=== PATIENT | male | born 1960 | race Caucasian/White ===

== ENCOUNTER 2024-11-04 22:01 | Observation (INO) ==
[2024-11-04] MEDS: METHYLPREDNISOLONE SOD SUCC/PF 125 MG/2 ML VIAL IVP ONE (22:40)
[2024-11-04] MEDS ORDERED: METHYLPREDNISOLONE SOD SUCC/PF 125 MG/2 ML VIAL ONE (22:40)
[2024-11-04 22:51] LABS: Eosinophils%(Percent) Auto 0.4 % (0.0-4.0); White Blood Count 13.3 K/uL (3.7-9.6)
[2024-11-04 22:52] LABS: Granulocytes % - Auto 94.3 % (49.1-73.1); Granulocytes#(Absolute)- Auto 12.6 (2.0-6.2); Hematocrit 46.8 % (41.3-50.1); Mean Corpuscular Volume 93.1 fl (81.9-96.5); Monocytes #(Absolute)- Auto 0.2 (0.2-0.8); Monocytes %(Percent)- Auto 1.2 % (4.5-10.7); Platelet Count 182 K/uL (142-355)
[2024-11-04 23:03] LABS: Potassium 5.7 mmol/L (3.6-5.2)
[2024-11-04] MEDS: IPRATROPIUM/ALBUTEROL SULFATE 3 ML AMPUL.NEB INH ONE (23:07)
[2024-11-04] MEDS: BUDESONIDE 0.5 MG/2 ML AMPUL.NEB INH ONE (23:08)
[2024-11-04 23:37] LABS: Oxygen Saturation ABG 96 % (92-100); PCO2 ABG 35 mmHg (35-45); PO2 ABG 75 mmHg (60-100); pH ABG 7.47 (7.35-7.45)
[2024-11-04] MEDS ORDERED: CEFTRIAXONE SODIUM 1 GM VIAL ONE (23:48)
[2024-11-04] MEDS ORDERED: 0.9 % SODIUM CHLORIDE MB+ 50 ML IV ONE (23:48)
[2024-11-04] MEDS: CEFTRIAXONE SODIUM 1 GM in 0.9 % SODIUM CHLORIDE MB+ 50 ML IV ONE (23:50)
[2024-11-04] MEDS: BUMETANIDE 1 MG/4 ML VIAL IVP ONE (23:51)
[2024-11-05] MEDS ORDERED: BUMETANIDE 1 MG/4 ML VIAL ONE (01:26)
[2024-11-05] MEDS: BUMETANIDE 1 MG/4 ML VIAL IVP ONE (01:30)
--- NOTE | 2024-11-05 02:34 | Emergency Department Note ---
HPI - SOB/Dyspnea General Chief Complaint: SOB -Shortness of Breath Stated Complaint: LOW STATS/LOW OXYGEN STAT LEVELS Source: patient, EMR, EMS and other Source comment: [facility] [place] Mode of arrival: ambulance Limitations: altered mental status and physical limitation History of Present Illness HPI Narrative: A 64-year-old male came into the ER [facility] secondary to inability to get his of his bed out of the room and down the [place]. States that patient was being turned today yelled out in pain with his left hip as he is in the right hip so x-ray was performed since then he has developed increasing shortness of breath difficulty breathing tonight his pulse ox dropped to 80% even with face mask alcohol he came up to 89 to 91%. assisted staff denies any fever, chills, nausea and vomiting, no bowel habit changes and the pain in his right hip without complaints since this afternoon. Related Data Home Medications Medication Instructions Recorded Confirmed acetaminophen 325 mg tablet 650 mg PO Q6H PRN fever or pain 01/30/24 11/05/24 buspirone 10 mg tablet 10 mg PO DAILY 01/30/2410/18 calcium 600 mg (as 1 tab PO BID 01/30/24 carbonate)-vitamin D3 10 mcg (400 unit) tablet (Calcium with Vitamin D) camphor-menthol 0.2 %-3.5 % 1 applic topical BID PRN m uscle 01/30/24 11/05/24 topical gel pain digoxin 250 mcg (0.25 mg) tablet 0.25 mg PO DAILY 01/1711/05/24 duloxetine 60 mg capsule,delayed 60 mg PO DAILY 11/05/24 release finasteride 5 mg tablet 5 mg PO DAILY 01/30/2411/05 furosemide 20 mg tablet 20 mg PO DAILY PRN SWELLING 01/30/24 11/05/24 hydrocodone 10 mg-acetaminophen 1 tab PO Q6H PRN pain 01/30/24 11/05/24 325 mg tablet insulin aspart U-100 100 unit/mL 1 sliding scale dose subcut ACHS 01/30/24 11/05/24 subcutaneous solution (Novolog PRN hyperglycemia U-100 Insulin aspart) pantoprazole 40 mg tablet,delayed 40 mg PO BID 4 11/05/24 release potassium chloride 20 mEq 20 meq PO BID 01/30/2411/05 tablet,extended release(part/cryst) pregabalin 100 mg capsule 100 mg PO BID 01/30/2411/05 ropinirole 4 mg tablet 4 mg PO BEDTIME 01/30/24 spironolactone 25 mg tablet 25 mg PO BID 01/30/2410/18 calcium carbonate (Tums) 200 mg PO TID PRN dyspepsia 11/05/24 11/05/24 cetirizine 10 mg tablet 10 mg PO DAILY 11/05/2410/18 ferrous sulfate 325 mg (65 mg 325 mg PO BID 11/05/24 0 11/05/24 iron) tablet ipratropium 0.5 mg-albuterol 3 mg 3 ml inhalation Q8H PRN shortness 11/05/24 11/05/24 (2.5 mg base)/3 mL nebulization of breath or wheezing soln sodium chloride 0.65 % nasal spray 1 spray intranasal Q1H PRN dry 11/05/24 11/05/24 aerosol ([place] Saline) nasal passages Previous Rx's Medication Instructions Recorded bumetanide 0.5 mg tablet 0.5 mg PO BID fluid overload and 01/30/24 scrotal swelling #60 tabs Allergies Allergy/AdvReac Type Severity Reaction Status Date / Time codeine Allergy Verified 11/04/24 22:32 Review of Systems Status of ROS 10 or more systems reviewed and unremark able except as noted in history and below Constitutional Reports: fatigue and malaise; Denies: fever, chills, change in weight, night sweats or change in sleep pattern Eyes Denies: change in vision, blurry vision, blind spots, light sensitivity, eye discomfort, eye discharge or dry eyes Ears, nose, mouth, and throat Denies: throat pain, neck pain, throat swelling, difficulty swallowing, hoarseness, mouth pain, swelling of lips/tongue, ear pain or ear discharge Cardiovascular Reports: edema (BLE), swelling of feet/ankles (BLE), shortness of breath with exertion and shortness of breath when lying down; Denies: chest pain, palpitations, lightheadedness or leg pain with exertion Respiratory Reports: shortness of breath and wheezing; Denies: cough, stridor, pain on inspiration or change in phlegm color Gastrointestinal Reports: constipation; Denies: abdominal pain, nausea, vomiting, coffee grounds in vomit, heartburn, diarrhea, bloating, belching or difficulty swallowing Genitourinary Denies: painful urination, urinary frequency, urinary urgency, blood in urine or genital pain Musculoskeletal Reports: back pain, extremity swelling (BLE), joint pain, limited range of motion and muscle weakness; Denies: neck pain or extremity pain Integumentary/Breast Reports: rash (axilla and groin folds), stretch knott and nail changes; Denies: itching, redness, skin pain or skin tenderness Neurological Reports: headache and weakness in extremities; Denies: numbness in extremities, lack of coordination or dizziness Psychiatric Reports: anxiety and irritability; Denies: mood swings, panic attacks, change in sleep pattern, hopelessness, visual hallucinations, auditory hallucinations, tactile hallucinations, suicidal ideation or homicidal ideation Endocrine Reports: fatigue; Denies: excessive urination, excessive thirst, cold intolerance or excessive sweating Hematologic/Lymphatic Denies: easy bruising, easy bleeding or enlarged lymph nodes Allergic/Immunologic Denies: hives, throat swelling, tongue swelling, facial swelling, wheezing or itchy eyes PFSH PFSH Medical History Hypoxia Urethral meatal stenosis Anxiety disorder, unspecified Arthropathy, unspecified Heart failure, unspecified Old myocardial infarction Chronic pain syndrome Insomnia, unspecified Generalized anxiety disorder Hyperlipidemia, unspecified Morbid (severe) obesity due to excess calories Chronic or unspecified gastric ulcer with hemorrhage Iron deficiency anemia secondary to blood loss (chronic) Type 2 diabetes mellitus without complications Chronic ischemic heart disease, unspecified BPH (benign prostatic hyperplasia) Depression Polyneuropathy Atrial fibrillation Hypertension after donor nephrectomy requiring medication Anxiety Hypoalbuminemia Anemia GERD (gastroesophageal reflux disease) Chronic respiratory failure due to obstructive sleep apnea Chronic venous insufficiency of lower extremity Scrotal swelling Metabolic disorder Acute exacerbation of CHF (congestive heart failure) Debility Fluid overload Social History Smoking status: unknown if ever smoked What is your current living situation: I presently have a place to live Problems where you live: no known problems Highest level of school completed/degree received: decline to answer Feel stressed/tense/nervous/anxious/difficulty sleeping: very much Life stressor details: hospice Exam Exam: Patient was in fowlers position upon entering room for exam. Constitutional: abnormal general appearance (disheveled) and (chronically ill), no apparent distress, abnormal body habitus (obese), limitations noted (physical limitations) and alert Vital Signs - 24 hr 11/04/24 22:25 11/04/24 23:08 11/04/24 23:30 Temperature 97.8 F 97.8 F Pulse Rate 80 75 Respiratory Rate 17 17 Blood Pressure 90/53 98/48 Pulse Oximetry 93 L 98 94 L Oxygen Delivery Me thod Nasal Cannula Nasal Cannula Oxygen Flow Rate 4 4 11/04/24 23:51 11/05/24 00:30 11/05/24 01:30 Temperature Pulse Rate 75 Respiratory Rate 17 Blood Pressure 108/50 108/75 112/50 Pulse Oximetry 95 Oxygen Delivery Me thod Nasal Cannula Oxygen Flow Rate 4 11/05/24 01:32 11/05/24 02:26 Temperature 97.0 F L Pulse Rate 81 89 Respiratory Rate 17 18 Blood Pressure 112/50 101/48 Pulse Oximetry 94 L 92 L Oxygen Delivery Me thod Nasal Cannula Nasal Cannula Oxygen Flow Rate 4 4 Vital Signs - 24 hr 11/04/24 22:25 11/04/24 23:08 11/04/24 23:30 Temperature 97.8 F 97.8 F Pulse Rate 80 75 Pulse Rate [Left] Respiratory Rate 17 17 Blood Pressure 90/53 98/48 Blood Pressure [Le ft Arm] Pulse Oximetry 93 L 98 94 L Oxygen Delivery Me thod Nasal Cannula Nasal Cannula Oxygen Flow Rate 4 4 11/04/24 23:51 11/05/24 00:30 11/05/24 01:30 Temperature Pulse Rate 75 Pulse Rate [Left] Respiratory Rate 17 Blood Pressure 108/50 108/75 112/50 Blood Pressure [Le ft Arm] Pulse Oximetry 95 Oxygen Delivery Me thod Nasal Cannula Oxygen Flow Rate 4 11/05/24 01:32 11/05/24 02:26 11/05/24 03:26 Temperature 97.0 F L 98.0 F Pulse Rate 81 89 90 Pulse Rate [Left] Respiratory Rate 17 18 18 Blood Pressure 112/50 101/48 106/47 Blood Pressure [Le ft Arm] Pulse Oximetry 94 L 92 L 97 Oxygen Delivery Me thod Nasal Cannula Nasal Cannula Nasal Cannula Oxygen Flow Rate 4 4 4 11/05/24 03:35 11/05/24 03:39 11/05/24 04:49 Temperature 98.0 F Pulse Rate 90 Pulse Rate [Left] Respiratory Rate 20 20 Blood Pressure 106/47 Blood Pressure [Le ft Arm] Pulse Oximetry 95 95 90 L Oxygen Delivery Me thod Nasal Cannula Oxygen Flow Rate 4 11/05/24 08:00 11/05/24 12:00 Temperature 97.9 F 97.7 F Pulse Rate Pulse Rate [Left] 110 H 60 Respiratory Rate 22 21 Blood Pressure Blood Pressure [Le ft Arm] 90/56 92/45 Pulse Oximetry 90 L 90 L Oxygen Delivery Me thod Nasal Cannula Nasal Cannula Oxygen Flow Rate 5 5 HENMT: normocephalic, head/scalp atraumatic, hearing grossly abnormal, external ears normal, TMs abnormal, nasal mucous membranes normal, external nose normal, oral mucous membranes abnormal, oropharynx normal and dentition abnormal Eyes: PERRL, EOMs intact bilaterally, conjunctivae normal, scleral icterus noted, papilledema noted and periorbital findings normal Neck/C-Spine: visual inspection normal and trachea midline Lymph: no lymphadenopathy noted and no lymphedema noted Chest: inspection of chest normal and palpation of chest normal Respiratory: breath sounds unequal, normal respiratory effort, auscultation abnormal, wheezing noted, rales noted, no retractions and no use of accessory muscles Cardiovascular: normal heart rate noted, regular rhythm noted, no gallop, no rub, murmur noted, no JVD, no clicks and peripheral pulses 2+ throughout Gastrointestinal: abdomen abnormal to inspection, abdomen soft to palpation, nontender to palpation, nontender to percussion, nondistended, normoactive bowel sounds, hepatosplenomegaly noted, no masses, no pulsatile mass, no ascites and hernia noted Genitourinary: no CVA tenderness, bladder normal to palpation and inguinal lymphadenopathy noted bilateral testicle swelling with redness and abrasion to testicle, bilateral groin with redness Back/Pelvis: spine abnormal to inspection, thoracic spine tenderness noted, lumbar spine tenderness noted, thoracic spine ROM abnormal, lumbar spine ROM abnormal, paraspinal muscle tenderness noted and straight leg raise abnormal Extremities: abnormal to inspection (BLE swelling with redness, ble with small fluid filled blisters), normal to palpation, no tenderness, full ROM, no joint enlargement and no deformity inner thighs with skin peeling and redness. Strong 2 plus bilateral pedal and radial pulses. 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 II-XII intact, no movement abnormality noted, no focal motor deficit noted, sensory deficit noted, gait abnormality noted, speech abnormality noted, coordination abnormality noted, no pronator drift noted, no fasciculations noted and GCS normal Psychiatry: Mental Status Exam documented within this Exam's Psych section mental status grossly normal, oriented x3, thought process abnormality noted, cooperative, affect abnormality noted (anxious), psychomotor abnormality noted (slow) and (disorganized) and memory normal Feel stressed/tense/nervous/anxious/difficulty sleeping: very much Life stressor details: hospice Skin: skin color abnormal Reports (pale) and (cyanosis), rash noted (axilla, groin and breast folds erythema and scaling), lesion(s) noted (pick lesions on chest and abdomen), ecchymosis noted, wound(s) noted, no lacerations, skin turgor abnormal, jaundice noted, no petechiae, no mottling, nails abnormality noted and alopecia noted Course Reevaluation(s) Reevaluation #1: Patient tolerated the DuoNeb and Pulmicort along with the Lasix 40 mg IV still having rapid breathing but not as distressed was able to carry on conversation with 2-3 words sats still requiring 4 L of oxygen to maintain above 90%. Patient knows where he is 89 years knows me although he is unable to rationalize it is not a rats nest in the saline and he continues to pick at the close sheets in his chest acute, going to work on those, thanks while he is in the ER. Vital Signs Vital signs: Vital Signs Temperature 97.8 F 11/04/24 22:25 Pulse Rate 80 11/04/24 22:25 Respiratory Rate 17 11/04/24 22:25 Blood Pressure 90/53 11/04/24 22:25 Pulse Oximetry 93 L 11/04/24 22:25 Oxygen Delivery Method Nasal Cannula 11/04/24 22:25 Oxygen Flow Rate 4 11/04/24 22:25 Temperature 97.7 F 11/05/24 12:00 Pulse Rate 60 11/05/24 12:00 Respiratory Rate 21 11/05/24 12:00 Blood Pressure 92/45 11/05/24 12:00 Pulse Oximetry 90 L 11/05/24 12:00 Oxygen Delivery Method Nasal Cannula 11/05/24 12:00 Oxygen Flow Rate 5 11/05/24 12:00 MDM - SOB/Dyspnea MDM Narrative Medical decision making narrative: Patient presented to the ER with acute low blood pressure difficulty breathing chronic swelling. Exacerbation of COPD, asthma, pulmonary embolism, community- acquired pneumonia, congestive heart failure acute on chronic, sleep apnea, dehydration, hypokalemia, debility. Nursing staff and [facility] was [facility] patient he screamed out in pain holding his right hip so x-ray was performed just to assure there is no acute injury Differential Diagnosis Differential diagnosis: Likely acute exacerbation of chronic obstructive airways disease, congestive heart failure, community acquired pneumonia, asthma with exacerbation, pulmonary embolism and other (Sleep apnea, dehydration, hyperkalemia, hypoalbuminemia, ) Medical Records Attestation: I reviewed the patient's medical records. Lab Data Attestation: I reviewed the patient's lab results. Labs: Lab Results 11/04/24 11/04/24 11/04/24 Range/Units 00:00 22:20 22:52 WBC 13.3 H (3.7-9.6) K/uL RBC 5.0 (4.40-5.80) M/uL Hgb 15.8 (14.0-17.4) gm/dL Hct 46.8 (41.3-50.1) % MCV 93.1 (81.9-96.5) fl MCH 31.4 (27.6-33.7) pg MCHC 33.7 (33.0-35.7) g/dl RDW 17.9 H (11.0-14.8) % Plt Count 182 (142-355) K/uL MPV 10.2 (6.0-10.4) fl Gran % 94.3 H (49.1-73.1) % Lymph % (Auto) 4.1 L (17.6-39.05) % [place] % (Auto) 1.2 L (4.5-10.7) % Eos % (Auto) 0.4 (0.0-4.0) % Baso % (Auto) 0.0 (0.0-1.3) Lymph # (Auto) 0.5 L (0.8-2.9) [place] # (Auto) 0.2 (0.2-0.8) Eos # (Auto) 0.0 (0.0-0.3) Baso # (Auto) 0.0 (0.0-0.1) Absolute Gran (auto) 12.6 H (2.0-6.2) ABG pH 7.47 H (7.35-7.45) ABG pCO2 35 (35-45) mmHg ABG pO2 75 (60-100) mmHg ABG PO2/FiO2 Ratio ABG HCO3 (22-26) mmo1/L ABG Total CO2 mmo1/L ABG O2 Saturation (92-100) % ABG Base Excess (-2-2) mmo1/L A-a O2 Gradient mmHg Respiratory Index (0-1) FiO2 % Sodium 136 (136-145) mmol/L Potassium 5.1 5.7 H (3.6-5.2) mmol/L Chloride 100.0 (98-107) mmol/L Carbon Dioxide 23 (21-32) mmol/L Anion Gap 13.0 (4-14) mEq/L BUN 54 H (7-18) mg/dL Creatinine 1.2 (0.6-1.3) mg/dL Estimated GFR 68.4 (>59.9) Glucose 64 L (70-110) mg/dL Lactic Acid 3.2 H (0.27-1.43) mmol/L Calcium 8.1 L (8.5-10.1) mg/dL Total Bilirubin 3.40 H (0.0-1.0) mg/dL AST 46 H (15-37) U/L ALT 24 L (30-65) U/L Alkaline Phosphatase 111 (50-136) U/L Troponin I High Sens (4.0-60.4) ng/L B-Natriuretic Peptide 1240.0 H (0-100) pg/mL Total Protein 5.9 L (6.4-8.2) g/dL Albumin 1.9 L (3.4-5.0) g/dL Lipase (16.0-77.0) U/L 11/04/24 11/05/24 Range/Units 22:52 00:00 WBC (3.7-9.6) K/uL RBC (4.40-5.80) M/uL Hgb (14.0-17.4) gm/dL Hct (41.3-50.1) % MCV (81.9-96.5) fl MCH (27.6-33.7) pg MCHC (33.0-35.7) g/dl RDW (11.0-14.8) % Plt Count (142-355) K/uL MPV (6.0-10.4) fl Gran % (49.1-73.1) % Lymph % (Auto) (17.6-39.05) % [place] % (Auto) (4.5-10.7) % Eos % (Auto) (0.0-4.0) % Baso % (Auto) (0.0-1.3) Lymph # (Auto) (0.8-2.9) [place] # (Auto) (0.2-0.8) Eos # (Auto) (0.0-0.3) Baso # (Auto) (0.0-0.1) Absolute Gran (auto) (2.0-6.2) ABG pH (7.35-7.45) ABG pCO2 (35-45) mmHg ABG pO2 241 (60-100) mmHg ABG PO2/FiO2 Ratio 0.31 ABG HCO3 25.5 (22-26) mmo1/L ABG Total CO2 26.6 mmo1/L ABG O2 Saturation 96 (92-100) % ABG Base Excess 2.0 (-2-2) mmo1/L A-a O2 Gradient 166 mmHg Respiratory Index 2.2 H (0-1) FiO2 40 % Sodium (136-145) mmol/L Potassium (3.6-5.2) mmol/L Chloride (98-107) mmol/L Carbon Dioxide (21-32) mmol/L Anion Gap (4-14) mEq/L BUN (7-18) mg/dL Creatinine (0.6-1.3) mg/dL Estimated GFR (>59.9) Glucose (70-110) mg/dL Lactic Acid (0.27-1.43) mmol/L Calcium (8.5-10.1) mg/dL Total Bilirubin (0.0-1.0) mg/dL AST (15-37) U/L ALT (30-65) U/L Alkaline Phosphatase (50-136) U/L Troponin I High Sens 52.30 (4.0-60.4) ng/L B-Natriuretic Peptide (0-100) pg/mL Total Protein (6.4-8.2) g/dL Albumin (3.4-5.0) g/dL Lipase 6.0 L (16.0-77.0) U/L ABG Data Attestation: I have reviewed the pertinent ABG results. Imaging Data Imaging ordered: Chest x-ray and other (right hip xray) Attestation: I have reviewed the pertinent imaging results. Radiologist's impression: EXAM: XR HIP RT MIN 2V HISTORY: LEFT HIP PAIN ; Unavailable COMPARISON: [facility] abdominopelvic CT December 09, 2022 FINDINGS: Right hip reveals marked non uniform joint space narrowing, subchondral cystic and osteophyte formation. IMPRESSION: Severe hip osteoarthritis. CHEST HISTORY: hypoxishypoxis; COMPARISON: October 17, 2024. TECHNIQUE: Frontal view of the chest was submitted for interpretation. FINDINGS: The cardiomediastinal silhouette is again seen to be enlarged. Lungs show diffuse airspace disease bilaterally, not significantly changed since October 17, 2024. IMPRESSION: Cardiomegaly again noted. Diffuse airspace disease is not significantly changed since October 17, 2024 and likely represents an element of pulmonary edema ECG Data Attestation: I have reviewed the pertinent ECG results. Prior ECG tracings: available for review Interpretation: EKG-atrial fibrillation, ventricular premature complex, rate 82, RR 732, [place] Discharge Plan Discharge Patient Disposition: Admitted As Observation Condition: Improved Clinical Impression: Acute exacerbation of CHF (congestive heart failure), Debility, Hypertension, Chronic venous insufficiency of lower extremity, Acute hyperkalemia, Acute hypotension, Hypoalbuminemia Interventions: ED Discharge Assessment Last Done: 11/05/24 03:39 ED Discharge Vital Sign Last Done: 11/05/24 03:39 Emergency Department Charge Sheet Last Done: 11/05/24 03:40 Time of Disposition: 02:34 Discharge Date/Time: 11/05/24 03:30
[2024-11-05] MEDS ORDERED: MAGNESIUM, ALUMINUM HYDROXIDE 30 ML ORAL.SUSP PO PRN (02:54)
[2024-11-05] MEDS ORDERED: DOCUSATE SODIUM 100 MG CAPSULE PO PRN (02:54)
[2024-11-05] MEDS ORDERED: ONDANSETRON HCL/PF 4 MG/2 ML VIAL INJ PRN (02:54)
[2024-11-05] MEDS ORDERED: ACETAMINOPHEN 500 MG TABLET PO PRN (02:54)
[2024-11-05] MEDS: IPRATROPIUM/ALBUTEROL SULFATE 3 ML AMPUL.NEB INH SCH (03:35)
[2024-11-05] MEDS: BUDESONIDE 0.5 MG/2 ML AMPUL.NEB INH ONE (03:35)
[2024-11-05] MEDS: 0.9 % SODIUM CHLORIDE 1000 ML 1,000 ML IV SCH (08:00)
[2024-11-05] MEDS: CALCIUM GLUCONATE 1,000 MG in 0.9 % SODIUM CHLORIDE 100ML 100 ML IV ONE (08:00)
[2024-11-05] MEDS: ALBUMIN HUMAN 25% 100 ML IV SCH (08:01)
[2024-11-05] MEDS: PANTOPRAZOLE SODIUM 40 MG TABLET.DR PO SCH (09:26)
[2024-11-05 10:26] LABS: Basophils%(Percent) Auto 0.1 (0.0-1.3); Eosinophils%(Percent) Auto 0.2 % (0.0-4.0); Granulocytes % - Auto 94.9 % (49.1-73.1); Granulocytes#(Absolute)- Auto 11.7 (2.0-6.2); Hematocrit 47.2 % (41.3-50.1); Mean Corpuscular Volume 92.7 fl (81.9-96.5); Monocytes #(Absolute)- Auto 0.3 (0.2-0.8); Monocytes %(Percent)- Auto 2.1 % (4.5-10.7); Platelet Count 175 K/uL (142-355); White Blood Count 12.3 K/uL (3.7-9.6)
[2024-11-05 11:41] LABS: RBC Morphology Normal (Normal); Total Cells Counted 100
--- NOTE | 2024-11-05 13:41 | Short Stay Summary ---
H&P: HPI History of Present Illness Chief complaint: LOW STATS/LOW OXYGEN STAT LEVELS Narrative: A 64-year-old male came into the ER via EMS from the [place] secondary to inability to get his of his bed out of the room and down the [place]. States that patient was being turned today yelled out in pain with his left hip as he is in the right hip so x-ray was performed since then he has developed increasing shortness of breath difficulty breathing tonight his pulse ox dropped to 80% even with face mask alcohol he came up to 89 to 91%. intermediate staff denies any fever, chills, nausea and vomiting, no bowel habit changes and the pain in his right hip without complaints since this afternoon. After discussion with nursing nurses again today advised patient was on [facility] for several years revoked last week after the right hip was shown to have osteoarthritis for physical therapy regimen to help strengthen patient and decrease his pain. Review of Systems Status of ROS 10 or more systems reviewed and unremark able except as noted in history and below Constitutional Reports: fatigue and malaise; Denies: fever, chills, change in weight, night sweats or change in sleep pattern Eyes Denies: change in vision, blurry vision, blind spots, light sensitivity, eye discomfort, eye discharge or dry eyes Ears, nose, mouth, and throat Denies: throat pain, neck pain, throat swelling, difficulty swallowing, hoarseness, mouth pain, swelling of lips/tongue, ear pain or ear discharge Cardiovascular Reports: edema (BLE), swelling of feet/ankles (BLE), shortness of breath with exertion and shortness of breath when lying down; Denies: chest pain, palpitations, lightheadedness or leg pain with exertion Respiratory Reports: shortness of breath and wheezing; Denies: cough, stridor, pain on inspiration or change in phlegm color Gastrointestinal Reports: constipation; Denies: abdominal pain, nausea, vomiting, coffee grounds in vomit, heartburn, diarrhea, bloating, belching or difficulty swallowing Genitourinary Denies: painful urination, urinary frequency, urinary urgency, blood in urine or genital pain Musculoskeletal Reports: back pain, extremity swelling (BLE), joint pain, dowling ited range of motion and muscle weakness; Denies: neck pain or extremity pain Integumentary/Breast Reports: rash (axilla and groin folds), stretch knott and nail changes; Denies: itching, redness, skin pain or skin tenderness Neurological Reports: headache and weakness in extremities; Denies: numbness in extremities, lack of coordination or dizziness Psychiatric Reports: anxiety and irritability; Denies: mood swings, panic attacks, change in sleep pattern, hopelessness, visual hallucinations, auditory hallucinations, tactile hallucinations, suicidal ideation or homicidal ideation Endocrine Reports: fatigue; Denies: excessive urination, excessive thirst, cold intolerance or excessive sweating Hematologic/Lymphatic Denies: easy bruising, easy bleeding or enlarged lymph nodes Allergic/Immunologic Denies: hives, throat swelling, tongue swelling, facial swelling, wheezing or itchy eyes PFSH PFS Medical History Hypoxia Urethral meatal stenosis Anxiety disorder, unspecified Arthropathy, unspecified Heart failure, unspecified Old myocardial infarction Chronic pain syndrome Insomnia, unspecified Generalized anxiety disorder Hyperlipidemia, unspecified Morbid (severe) obesity due to excess calories Chronic or unspecified gastric ulcer with hemorrhage Iron deficiency anemia secondary to blood loss (chronic) Type 2 diabetes mellitus without complications Chronic ischemic heart disease, unspecified BPH (benign prostatic hyperplasia) Depression Polyneuropathy Atrial fibrillation Hypertension after donor nephrectomy requiring medication Anxiety Hypoalbuminemia Anemia GERD (gastroesophageal reflux disease) Chronic respiratory failure due to obstructive sleep apnea Chronic venous insufficiency of lower extremity Scrotal swelling Metabolic disorder Acute exacerbation of CHF (congestive heart failure) Debility Fluid overload Social History Smoking status: unknown if ever smoked What is your current living situation: I presently have a place to live Problems where you live: no known problems Highest level of school completed/degree received: decline to answer Feel stressed/tense/nervous/anxious/difficulty sleeping: very much Life stressor details: hospice Meds Home Medications and Allergies Home Medications Medication Instructions Recorded Confirmed Type acetaminophen 325 mg tablet 650 mg PO Q6H PRN fever or pain 01/30/24 11/05/24 History bumetanide 0.5 mg tablet 0.5 mg PO BID fluid overload and 01/30/24 11/05/24 Rx scrotal swelling #60 tabs buspirone 10 mg tablet 10 mg PO DAILY 01/30/2410/18 History calcium 600 mg (as 1 tab PO BID 01/30/24 History carbonate)-vitamin D3 10 mcg (400 unit) tablet (Calcium with Vitamin D) camphor-menthol 0.2 %-3.5 % 1 applic topical BID PRN m uscle 01/30/24 11/05/24 History topical gel pain digoxin 250 mcg (0.25 mg) tablet 0.25 mg PO DAILY 01/1711/05/24 History duloxetine 60 mg capsule,delayed 60 mg PO DAILY 11/05/24 History release finasteride 5 mg tablet 5 mg PO DAILY 01/30/2411/05 History furosemide 20 mg tablet 20 mg PO DAILY PRN SWELLING 01/30/24 11/05/24 History hydrocodone 10 mg-acetaminophen 1 tab PO Q6H PRN pain 01/30/24 11/05/24 History 325 mg tablet insulin aspart U-100 100 unit/mL 1 sliding scale dose subcut ACHS 01/30/24 11/05/24 History subcutaneous solution (Novolog PRN hyperglycemia U-100 Insulin aspart) pantoprazole 40 mg tablet,delayed 40 mg PO BID 4 11/05/24 History release potassium chloride 20 mEq 20 meq PO BID 01/30/2411/05 History tablet,extended release(part/cryst) pregabalin 100 mg capsule 100 mg PO BID 01/30/2411/05 History ropinirole 4 mg tablet 4 mg PO BEDTIME 01/30/24 History spironolactone 25 mg tablet 25 mg PO BID 01/30/2410/18 History calcium carbonate (Tums) 200 mg PO TID PRN dyspepsia 11/05/24 11/05/24 History cetirizine 10 mg tablet 10 mg PO DAILY 11/05/2410/18 History ferrous sulfate 325 mg (65 mg 325 mg PO BID 11/05/24 0 11/05/24 History iron) tablet ipratropium 0.5 mg-albuterol 3 mg 3 ml inhalation Q8H PRN shortness 11/05/24 11/05/24 History (2.5 mg base)/3 mL nebulization of breath or wheezing soln sodium chloride 0.65 % nasal spray 1 spray intranasal Q1H PRN dry 11/05/24 11/05/24 History aerosol (Wild Horse Saline) nasal passages Allergies Allergy/AdvReac Type Severity Reaction Status Date / Time codeine Allergy Verified 11/04/24 22:32 Exam Exam: Patient was in fowlers position upon entering room for exam. Constitutional: abnormal general appearance (disheveled) and (chronically ill), no apparent distress, abnormal body habitus (obese), limitations noted (physical limitations) and alert Vital Signs - 24 hr 11/04/24 22:25 11/04/24 23:08 11/04/24 23:30 Temperature 97.8 F 97.8 F Pulse Rate 80 75 Pulse Rate [Left] Respiratory Rate 17 17 Blood Pressure 90/53 98/48 Blood Pressure [Le ft Arm] Pulse Oximetry 93 L 98 94 L Oxygen Delivery Me thod Nasal Cannula Nasal Cannula Oxygen Flow Rate 4 4 11/04/24 23:51 11/05/24 00:30 11/05/24 01:30 Temperature Pulse Rate 75 Pulse Rate [Left] Respiratory Rate 17 Blood Pressure 108/50 108/75 112/50 Blood Pressure [Le ft Arm] Pulse Oximetry 95 Oxygen Delivery Me thod Nasal Cannula Oxygen Flow Rate 4 11/05/24 01:32 11/05/24 02:26 11/05/24 03:26 Temperature 97.0 F L 98.0 F Pulse Rate 81 89 90 Pulse Rate [Left] Respiratory Rate 17 18 18 Blood Pressure 112/50 101/48 106/47 Blood Pressure [Le ft Arm] Pulse Oximetry 94 L 92 L 97 Oxygen Delivery Me thod Nasal Cannula Nasal Cannula Nasal Cannula Oxygen Flow Rate 4 4 4 11/05/24 03:35 11/05/24 03:39 11/05/24 04:49 Temperature 98.0 F Pulse Rate 90 Pulse Rate [Left] Respiratory Rate 20 20 Blood Pressure 106/47 Blood Pressure [Le ft Arm] Pulse Oximetry 95 95 90 L Oxygen Delivery Me thod Nasal Cannula Oxygen Flow Rate 4 11/05/24 08:00 11/05/24 12:00 Temperature 97.9 F 97.7 F Pulse Rate Pulse Rate [Left] 110 H 60 Respiratory Rate 22 21 Blood Pressure Blood Pressure [Le ft Arm] 90/56 92/45 Pulse Oximetry 90 L 90 L Oxygen Delivery Me thod Nasal Cannula Nasal Cannula Oxygen Flow Rate 5 5 HENMT: normocephalic, head/scalp atraumatic, hearing grossly abnormal, external ears normal, TMs abnormal, nasal mucous membranes normal, external nose normal, oral mucous membranes abnormal, oropharynx normal and dentition abnormal Eyes: PERRL, EOMs intact bilaterally, conjunctivae normal, scleral icterus noted, papilledema noted and periorbital findings normal Neck/C-Spine: visual inspection normal and trachea midline Lymph: no lymphadenopathy noted and no lymphedema noted Chest: inspection of chest normal and palpation of chest normal Respiratory: breath sounds unequal, normal respiratory effort, auscultation abnormal, wheezing noted, rales noted, no retractions and no use of accessory muscles Cardiovascular: normal heart rate noted, regular rhythm noted, no gallop, no rub, murmur noted, no JVD, no clicks and peripheral pulses 2+ throughout Gastrointestinal: abdomen abnormal to inspection, abdomen soft to palpation, nontender to palpation, nontender to percussion, nondistended, normoactive bowel sounds, hepatosplenomegaly noted, no masses, no pulsatile mass, no ascites and hernia noted Genitourinary: no CVA tenderness, bladder normal to palpation and inguinal lymphadenopathy noted bilateral testicle swelling with redness and abrasion to testicle, bilateral groin with redness Back/Pelvis: spine abnormal to inspection, thoracic spine tenderness noted, lumbar spine tenderness noted, thoracic spine ROM abnormal, lumbar spine ROM abnormal, paraspinal muscle tenderness noted and straight leg raise abnormal Extremities: abnormal to inspection (BLE swelling with redness, ble with small fluid filled blisters), normal to palpation, no tenderness, full ROM, no joint enlargement and no deformity inner thighs with skin peeling and redness. Strong 2 plus bilateral pedal and radial pulses. Neurology: transport rn II-XII intact, no movement abnormality noted, no focal motor deficit noted, sensory deficit noted, gait abnormality noted, speech abnormality noted, coordination abnormality noted, no pronator drift noted, no fasciculations noted and GCS normal Psychiatry: Mental Status Exam documented within this Exam's Psych section mental status grossly normal, oriented x3, thought process abnormality noted, cooperative, affect abnormality noted (anxious), psychomotor abnormality noted (slow) and (disorganized) and memory normal Feel stressed/tense/nervous/anxious/difficulty sleeping: very much Life stressor details: hospice Skin: skin color abnormal Reports (pale) and (cyanosis), rash noted (axilla, groin and breast folds erythema and scaling), lesion(s) noted (pick lesions on chest and abdomen), ecchymosis noted, wound(s) noted, no lacerations, skin turgor abnormal, jaundice noted, no petechiae, no mottling, nails abnormality noted and alopecia noted Assessment and Plan Assessment and Plan (1) Pneumonia: Qualifiers: Laterality: bilateral Lung location: unspecified part of lung Pneumonia type: due to unspecified organism Qualified Code(s): J18.9 - Pneumonia, unspecified organism Code(s): J18.9 - Pneumonia, unspecified organism (2) Hyperkalemia: Code(s): E87.5 - Hyperkalemia (3) Hypoalbuminemia: Code(s): E88.09 - Other disorders of plasma-protein metabolism, not elsewhere classified (4) Hypotension due to medication: Code(s): I95.2 - Hypotension due to drugs (5) End of life care: Code(s): Z51.5 - Encounter for palliative care (6) Fluid overload: Qualifiers: Hypervolemia type: other Qualified Code(s): E87.79 - Other fluid overload Code(s): E87.70 - Fluid overload, unspecified (7) Acute exacerbation of CHF (congestive heart failure): Qualifiers: Heart failure type: combined systolic and diastolic Qualified Code(s): I50.43 - Acute on chronic combined systolic (congestive) and diastolic (congestive) heart failure Code(s): I50.9 - Heart failure, unspecified (8) Hypertension: Qualifiers: Hypertension type: primary hypertension Qualified Code(s): I10 - Essential (primary) hypertension Code(s): I10 - Essential (primary) hypertension (9) Debility: Code(s): R53.81 - Other malaise (10) Urethral meatal stenosis: Qualifiers: Urethral stricture sex-location: male urethra-meatus Urethral stricture type: post-traumatic, male Qualified Code(s): 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, male, meatal Code(s): N35.919 - Unspecified urethral stricture, male, unspecified site (11) GERD (gastroesophageal reflux disease): Qualifiers: Esophagitis presence: without esophagitis Qualified Code(s): K21.9 - Gastro-esophageal reflux disease without esophagitis Code(s): K21.9 - Gastro-esophageal reflux disease without esophagitis (12) Type 2 diabetes mellitus without complications: Qualifiers: Diabetes mellitus longterm insulin use: with director talent use Qualified Code(s): E11.9 - Type 2 diabetes mellitus without complications; Z79.4 - MCFP (current) use of insulin Code(s): E11.9 - Type 2 diabetes mellitus without complications (13) Hypoxia: Code(s): R09.02 - Hypoxemia (14) Tinea corporis: Code(s): B35.4 - Tinea corporis Plan 0.9% normal saline at 100 mL/h Continue try to get urine from patient End-of-life issues discussed with patient he desires not to continue to be treated and go back to the assisted so patient was discharged back. Has not had his Xanax today he is very anxious in the ER sister talked to him and advised him to come back to the hospital so he was readmitted or actually discharge was canceled so that treatment could continue Rocephin 1 g IV every 12 hours Zithromax 500 mg every day Lasix IV Daily weights Cardiac monitoring Solu-Medrol 40 mg IV every 12 hours DuoNebs every 4 hours Pulmicort every 12 hours Diflucan 200 mg IV today then 100 mg every day IV Nystatin with triamcinolone applied affected area of the axilla breast and groin 3 times daily Results Labs Labs: CBC 11/04/24 11/05/24 Range/Units 22:20 09:08 WBC 13.3 H 12.3 H (3.7-9.6) K/uL RBC 5.0 5.1 (4.40-5.80) M/uL Hgb 15.8 15.5 (14.0-17.4) gm/dL Hct 46.8 47.2 (41.3-50.1) % Plt Count 182 175 (142-355) K/uL Gran % 94.3 H 94.9 H (49.1-73.1) % Lymph % (Auto) 4.1 L 2.7 L (17.6-39.05) % [place] % (Auto) 1.2 L 2.1 L (4.5-10.7) % Eos % (Auto) 0.4 0.2 (0.0-4.0) % Baso % (Auto) 0.0 0.1 (0.0-1.3) Lymph # (Auto) 0.5 L 0.3 L (0.8-2.9) [place] # (Auto) 0.2 0.3 (0.2-0.8) Eos # (Auto) 0.0 0.0 (0.0-0.3) Baso # (Auto) 0.0 0.0 (0.0-0.1) Absolute Gran (auto) 12.6 H 11.7 H (2.0-6.2) CMP 11/04/24 11/04/24 11/05/24 00:00 22:20 05:45 Sodium 136 142 Potassium 5.1 5.7 H 4.0 Chloride 100.0 106.0 Carbon Dioxide 23 30 BUN 54 H 22 H Creatinine 1.2 0.8 Glucose 64 L 97 Calcium 8.1 L 8.4 L Liver Function 11/04/24 11/05/24 Range/Units 22:20 05:45 Total Bilirubin 3.40 H 0.10 (0.0-1.0) mg/dL AST 46 H 15 (15-37) U/L ALT 24 L 30 (30-65) U/L Alkaline Phosphatase 111 39 L (50-136) U/L Albumin 1.9 L 2.5 L (3.4-5.0) g/dL ABG ABG results: 11/04/24 22:52 ABG pH 7.47 H ABG pCO2 35 ABG pO2 241 ABG HCO3 25.5 ABG Total CO2 26.6 ABG O2 Saturation 96 ABG Base Excess 2.0 Attestation: I have reviewed the pertinent ABG results. Pulse Oximetry Attestation: I have reviewed the pertinent pulse oximetry results. ECG Attestation: I have reviewed the pertinent ECG results. Prior ECG tracings: available for review Interpretation: in the ER Imaging Imaging ordered: Chest x-ray Radiologist's impression: CHEST HISTORY: hypoxishypoxis; COMPARISON: October 17, 2024. TECHNIQUE: Frontal view of the chest was submitted for interpretation. FINDINGS: The cardiomediastinal silhouette is again seen to be enlarged. Lungs show diffuse airspace disease bilaterally, not significantly changed since October 17, 2024. IMPRESSION: Cardiomegaly again noted. Diffuse airspace disease is not significantly changed since October 17, 2024 and likely represents an element of pulmonary edema DS: Providers Provider Date of admission: 11/05/24 02:54 Primary care physician: Ish Stewart MD Admitting clinician: Darcy Samuels Attending physician on admission: Darcy Samuels Attending physician on discharge: Darcy Samuels Discharging clinician: Darcy Samuels DS: Summary Status at Discharge Overall status at discharge: patient is progressing back to baseline Time Spent with Patient Time attestation: Total time spent providing and/or coordinating discharge services: Discharge Plan Discharge Disposition: [facility] Condition: Improved Anticipated Discharge Date/Time: 11/05/24 13:41 Discharge Medications: Continued hydrocodone-acetaminophen 10-325 mg tablet 1 tab PO Q6H PRN (Reason: pain) ropinirole 4 mg tablet 4 mg PO BEDTIME spironolactone 25 mg tablet 25 mg PO BID Rx Instructions: HOLD IF SYSTOLIC BLOOD PRESSURE LESS THAN 110 buspirone 10 mg tablet 10 mg PO DAILY digoxin 250 mcg (0.25 mg) tablet 0.25 mg PO DAILY duloxetine 60 mg capsule,delayed release(DR/EC) 60 mg PO DAILY finasteride 5 mg tablet 5 mg PO DAILY furosemide 20 mg tablet 20 mg PO DAILY PRN (Reason: SWELLING) insulin aspart U-100 [Novolog U-100 Insulin aspart] 100 unit/mL solution 1 sliding scale dose subcut ACHS PRN (Reason: hyperglycemia) pantoprazole 40 mg tablet,delayed release (DR/EC) 40 mg PO BID potassium chloride 20 mEq tablet,ER particles/crystals 20 meq PO BID pregabalin 100 mg capsule 100 mg PO BID camphor-menthol 0.2-3.5 % gel 1 applic topical BID PRN (Reason: muscle pain) Rx Instructions: rub in gently and completely calcium carbonate-vitamin D3 [Calcium with Vitamin D] 600 mg-10 mcg (400 unit) tablet 1 tab PO BID acetaminophen 325 mg tablet 650 mg PO Q6H PRN (Reason: fever or pain) bumetanide 0.5 mg tablet 0.5 mg PO BID Qty: 60 0RF cetirizine 10 mg tablet 10 mg PO DAILY ferrous sulfate 325 mg (65 mg iron) tablet 325 mg PO BID ipratropium-albuterol 0.5 mg-3 mg(2.5 mg base)/3 mL solution for nebulization 3 ml INHALATION Q8H PRN (Reason: shortness of breath or wheezing) Patient Comments: INHALE ONE VIAL VIA NEBULIZER THREE TIMES DAILY NEEDED calcium carbonate [Tums] 200 mg calcium (500 mg) tablet,chewable 200 mg PO TID PRN (Reason: dyspepsia) Wild Horse Saline 0.65 % aerosol,spray 1 spray intranasal Q1H PRN (Reason: dry nasal passages) Activity: as per physical therapy and increase activity as tolerated Diet: advance to your usual diet Interventions: Discharge Assessment Last Done: 11/05/24 14:01 MED/SURG & ICU Observation Charge Sheet Last Done: 11/05/24 14:01 Plan of Treatment: Patient was admitted to the hospital for the altered mental status and pneumonia and acute aspiration CHF. Upon discussion with the patient finds able to go back to the assisted today with return to comfort care hospice declines further treatment of his pneumonia inside the hospital at this time. Patient to be discussed with Ish to see if he wants antibiotics and further aerosolized treatments as well as continuing any diuretics or diuretic changes. Print Language: Hungarian Patient Instructions: Hospice Care (GEN) Forms: Portal/Health Info Access Inst Follow-Ups: Ish Stewart MD [Primary Care Provider, Medical]
[2024-11-05] MEDS ORDERED: ACETAMINOPHEN 325 MG TABLET PO PRN (18:32)
[2024-11-05] MEDS ORDERED: HYDROCODONE/APAP 10/325 MG 1 EACH TABLET PO PRN (18:32)
[2024-11-05] MEDS: ALPRAZolam 0.5 MG TABLET PO PRN (19:59)
[2024-11-05] MEDS: FLUCONAZOLE-NACL 200 MG/100 ML 200 MG/100 ML PIGGYBACK IV ONE (20:00)
[2024-11-05] MEDS: SPIRONOLACTONE 50 MG TABLET PO SCH (20:06)
[2024-11-05] MEDS: BUMETANIDE 1 MG TABLET PO SCH (20:07)
[2024-11-05] MEDS: FERROUS SULFATE 325 MG TABLET PO SCH (20:07)
[2024-11-05] MEDS: PREGABALIN 100 MG CAPSULE PO SCH (20:07)
[2024-11-06 06:54] LABS: Basophils%(Percent) Auto 0.2 (0.0-1.3); Eosinophils#(Absolute)Auto 0.1 (0.0-0.3); Eosinophils%(Percent) Auto 0.8 % (0.0-4.0); Granulocytes % - Auto 89.1 % (49.1-73.1); Mean Corpuscular Volume 93.7 fl (81.9-96.5); Monocytes #(Absolute)- Auto 0.6 (0.2-0.8); Monocytes %(Percent)- Auto 3.9 % (4.5-10.7); Platelet Count 167 K/uL (142-355); White Blood Count 15.7 K/uL (3.7-9.6)
[2024-11-06 07:37] LABS: Potassium 5.7 mmol/L (3.6-5.2)
[2024-11-06] MEDS ORDERED: DIGOXIN 125 MCG TABLET PO SCH (09:00)
[2024-11-06] MEDS: FINASTERIDE 5 MG TABLET PO SCH (09:35)
[2024-11-06] MEDS: CETIRIZINE HCL 10 MG TABLET PO SCH (09:35)
[2024-11-06] MEDS: BUSPIRONE HCL 5 MG TABLET PO SCH (09:36)
[2024-11-06] MEDS: DULOXETINE HCL 30 MG CAPSULE.DR PO SCH (09:37)
[2024-11-06 14:21] LABS: Base Excess ABG 0.2 mmo1/L (-2-2); Oxygen Saturation ABG 87 % (92-100); PCO2 ABG 32 mmHg (35-45); PO2 ABG 49 mmHg (60-100); pH ABG 7.47 (7.35-7.45)
[2024-11-06] MEDS: AZITHROMYCIN 500 MG 500 MG in 0.9 % SODIUM CHLORIDE 250 ML IV SCH (15:06)
[2024-11-06] MEDS: SODIUM POLYSTYRENE SULFONATE 15 GM/60 ML ORAL.SUSP PO SCH (15:07)
[2024-11-06] MEDS ORDERED: ACETAMINOPHEN 1000 MG/100 ML 750 MG/75 ML IV.SOLN IV PRN (16:08)
--- NOTE | 2024-11-06 16:11 | Progress Note ---
Progress Note: Subjective Subjective Interval history: Patient has been arrested and is alert and oriented. States today that he understands and has declined intubation and chest compressions if anything untoward happens to him at this time. Took his sister convincing him not to [facility] and stay in the hospital for treatment despite his desires prior to that to go back to the [facility]. So patient was discharged and brought back over secondary to change in desires for end-of-life care. Patient remained afebrile blood pressure was low but stable with tachycardia improved. oxygen at 4 liters controlling hypoxia with medications Exam Exam: Patient was in in bed during exam Constitutional: abnormal general appearance (disheveled) and (chronically ill), no apparent distress, abnormal body habitus (obese), limitations noted (physical limitations) and alert Vital Signs - 24 hr 11/05/24 20:00 11/05/24 21:11 11/05/24 21:51 Temperature 98.8 F Pulse Rate [Left] 85 Respiratory Rate 24 Blood Pressure Blood Pressure [Le ft Arm] 162/145 91/55 87/35 Pulse Oximetry 93 L Oxygen Delivery Me thod Nasal Cannula Oxygen Flow Rate Fraction of Inspir ed Oxygen 11/06/24 00:00 11/06/24 01:07 11/06/24 03:55 Temperature 98.3 F Pulse Rate [Left] 79 Respiratory Rate 20 Blood Pressure Blood Pressure [Le ft Arm] 83/37 Pulse Oximetry 90 L 90 L 90 L Oxygen Delivery Me thod Nasal Cannula Nasal Cannula Oxygen Flow Rate 2 Fraction of Inspir ed Oxygen 11/06/24 03:55 11/06/24 04:00 11/06/24 07:17 Temperature 98.3 F Pulse Rate [Left] 74 Respiratory Rate 22 Blood Pressure Blood Pressure [Le ft Arm] 88/44 Pulse Oximetry 90 L 92 L 92 L Oxygen Delivery Me thod Nasal Cannula Nasal Cannula Oxygen Flow Rate 2 Fraction of Inspir ed Oxygen 11/06/24 08:00 11/06/24 09:36 11/06/24 11:17 Temperature 97.9 F Pulse Rate [Left] 86 Respiratory Rate 23 Blood Pressure 100/48 Blood Pressure [Le ft Arm] 100/48 Pulse Oximetry 89 L 94 L Oxygen Delivery Me thod Nasal Cannula Oxygen Flow Rate 2 Fraction of Inspir ed Oxygen 11/06/24 12:00 11/06/24 15:10 Temperature 97.4 F L Pulse Rate [Left] 87 Respiratory Rate 24 Blood Pressure Blood Pressure [Le ft Arm] 128/56 Pulse Oximetry 82 L 94 L Oxygen Delivery Me thod Nasal Cannula Oxygen Flow Rate 2 Fraction of Inspir ed Oxygen HENMT: normocephalic, head/scalp atraumatic, hearing grossly abnormal, external ears normal, TMs abnormal, nasal mucous membranes normal, external nose normal, oral mucous membranes abnormal, oropharynx normal and dentition abnormal Eyes: PERRL, EOMs intact bilaterally, conjunctivae normal, scleral icterus noted, papilledema noted and periorbital findings normal Neck/C-Spine: visual inspection normal and trachea midline Lymph: no lymphadenopathy noted and no lymphedema noted Chest: inspection of chest normal and palpation of chest normal Respiratory: breath sounds unequal, normal respiratory effort, auscultation abnormal, wheezing noted, rales noted, no retractions and no use of accessory muscles Cardiovascular: normal heart rate noted, regular rhythm noted, no gallop, no rub, murmur noted, no JVD, no clicks and peripheral pulses 2+ throughout Gastrointestinal: abdomen abnormal to inspection, abdomen soft to palpation, nontender to palpation, nontender to percussion, nondistended, normoactive bowel sounds, hepatosplenomegaly noted, no masses, no pulsatile mass, no ascites and hernia noted Genitourinary: no CVA tenderness, bladder normal to palpation, scrotum abnormal (swelling) and inguinal lymphadenopathy noted bilateral testicle swelling with redness and abrasion to testicle, bilateral groin with redness Back/Pelvis: spine abnormal to inspection, thoracic spine tenderness noted, lumbar spine tenderness noted, thoracic spine ROM abnormal, lumbar spine ROM abnormal, paraspinal muscle tenderness noted and straight leg raise abnormal Extremities: abnormal to inspection (BLE swelling with redness, ble with small fluid filled blisters), normal to palpation, no tenderness, full ROM, no joint enlargement and no deformity inner thighs with skin peeling and redness. Strong 2 plus bilateral pedal and radial pulses. Neurology: clinical informatics specialist II-XII intact, no movement abnormality noted, no focal motor deficit noted, sensory deficit noted, gait abnormality noted, speech abnormality noted, coordination abnormality noted, no pronator drift noted, no fasciculations noted and GCS normal Psychiatry: Mental Status Exam documented within this Exam's Psych section mental status grossly normal, oriented x3, thought process abnormality noted, cooperative, affect abnormality noted (anxious), psychomotor abnormality noted (slow) and (disorganized) and memory normal Feel stressed/tense/nervous/anxious/difficulty sleeping: very much Life stressor details: hospice Skin: skin color abnormal Reports (pale) and (cyanosis), rash noted (axilla, groin and breast folds erythema and scaling), lesion(s) noted (pick lesions on chest and abdomen), ecchymosis noted, wound(s) noted, no lacerations, skin turgor abnormal, jaundice noted, no petechiae, no mottling, nails abnormality noted and alopecia noted Progress Note: Objective Labs Labs: CBC 11/06/24 Range/Units 05:55 WBC 15.7 H (3.7-9.6) K/uL RBC 4.8 (4.40-5.80) M/uL Hgb 15.0 (14.0-17.4) gm/dL Hct 45.0 (41.3-50.1) % Plt Count 167 (142-355) K/uL Gran % 89.1 H (49.1-73.1) % Lymph % (Auto) 6.0 L (17.6-39.05) % [place] % (Auto) 3.9 L (4.5-10.7) % Eos % (Auto) 0.8 (0.0-4.0) % Baso % (Auto) 0.2 (0.0-1.3) Lymph # (Auto) 0.9 (0.8-2.9) [place] # (Auto) 0.6 (0.2-0.8) Eos # (Auto) 0.1 (0.0-0.3) Baso # (Auto) 0.0 (0.0-0.1) Absolute Gran (auto) 14.0 H (2.0-6.2) CMP 11/06/24 05:55 Sodium 135 L Potassium 5.7 H Chloride 101.0 Carbon Dioxide 25 BUN 77 H Creatinine 2.1 H Glucose 86 Calcium 8.8 Liver Function 11/06/24 Range/Units 05:55 Total Bilirubin 3.37 H (0.0-1.0) mg/dL AST 42 H (15-37) U/L ALT 23 L (30-65) U/L Alkaline Phosphatase 90 (50-136) U/L Albumin 1.8 L (3.4-5.0) g/dL Progress Note: A&P Assessment and Plan (1) Pneumonia: Qualifiers: Laterality: bilateral Lung location: unspecified part of lung Pneumonia type: due to unspecified organism Qualified Code(s): J18.9 - Pneumonia, unspecified organism (2) Hyperkalemia: (3) Hypoalbuminemia: (4) Hypotension due to medication: (5) End of life care: (6) Fluid overload: Qualifiers: Hypervolemia type: other Qualified Code(s): E87.79 - Other fluid overload (7) Acute exacerbation of CHF (congestive heart failure): Qualifiers: Heart failure type: combined systolic and diastolic Qualified Code(s): I50.43 - Acute on chronic combined systolic (congestive) and diastolic (congestive) heart failure (8) Hypertension: Qualifiers: Hypertension type: primary hypertension Qualified Code(s): I10 - Essential (primary) hypertension (9) Debility: (10) Urethral meatal stenosis: Qualifiers: Urethral stricture sex-location: male urethra-meatus Urethral stricture type: post-traumatic, male Qualified Code(s): 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, male, meatal (11) GERD (gastroesophageal reflux disease): Qualifiers: Esophagitis presence: without esophagitis Qualified Code(s): K21.9 - Gastro-esophageal reflux disease without esophagitis (12) Type 2 diabetes mellitus without complications: Qualifiers: Diabetes mellitus intermodal customer service insulin use: with residential use Qualified Code(s): E11.9 - Type 2 diabetes mellitus without complications; Z79.4 - 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 Has not had his Xanax today he is very anxious in the ER sister talked to him and advised him to come back to the hospital so he was readmitted or actually discharge was canceled so that treatment could continue Rocephin 1 g IV every 12 hours Zithromax 500 mg every day Lasix IV Daily weights Cardiac monitoring Solu-Medrol 40 mg IV every 12 hours DuoNebs every 4 hours Pulmicort every 12 hours Diflucan 200 mg IV today then 100 mg every day IV Nystatin with triamcinolone applied affected area of the axilla breast and groin 3 times daily Fall Risk Details Valenzuela Fall Scale Risk Level: High Fall Risk Current Medications: Current Medications Acetaminophen (Acetaminophen 500 Mg Tablet) 1,000 mg PO Q6H PRN PRN Reason: MILD PAIN SCALE 1-4/fever Hydrocodone Bitart/Acetaminophen (Hydrocodone/Apap 10/325 Mg 1 Each Tablet) 1 each PO Q6H PRN PRN Reason: Moderate Pain SCALE 5-7 Albuterol Sulfate (Ipratropium/Albuterol Sulfate 3 Ml Ampul.Neb) 3 ml INH Q4H [facility] Last Admin: 11/06/24 15:10 Dose: 3 ml Alprazolam (Alprazolam 0.5 Mg Tablet) 0.5 mg PO Q12H PRN PRN Reason: Agitation Last Admin: 11/05/24 20:06 Dose: 0.5 mg Bumetanide (Bumetanide 1 Mg Tablet) 0.5 mg PO BID [facility] Last Admin: 11/06/24 09:36 Dose: 0.5 mg Buspirone HCl (Buspirone Hcl 5 Mg Tablet) 10 mg PO DAILY [facility] Last Admin: 11/06/24 09:36 Dose: 10 mg Cetirizine HCl (Cetirizine Hcl 10 Mg Tablet) 10 mg PO DAILY [facility] Last Admin: 11/06/24 09:35 Dose: 10 mg Docusate Sodium (Docusate Sodium 100 Mg Capsule) 100 mg PO DAILY PRN PRN Reason: Constipation Duloxetine HCl (Duloxetine Hcl 30 Mg Capsule.Dr) 60 mg PO DAILY [facility] Last Admin: 11/06/24 09:37 Dose: 60 mg Ferrous Sulfate (Ferrous Sulfate 325 Mg Tablet) 325 mg PO BID [facility] Last Admin: 11/06/24 09:37 Dose: 325 mg Finasteride (Finasteride 5 Mg Tablet) 5 mg PO DAILY [facility] Last Admin: 11/06/24 09:35 Dose: 5 mg Sodium Chloride (Sodium Chloride) 1,000 mls @ 100 mls/hr IV CONT [facility] Last Admin: 11/06/24 11:46 Dose: Not Given Fluconazole (Fluconazole-Nacl 200 Mg/100 Ml) 200 mg in 100 mls @ 100 mls/hr IV Q24H [facility] Azithromycin 500 mg/ Sodium (Chloride) 250 mls @ 250 mls/hr IV DAILY [facility] Last Admin: 11/06/24 15:06 Dose: 250 mls/hr Vancomycin HCl 1,000 mg/Vancomycin HCl 500 mg/ Sodium Chloride 500 mls @ 250 mls/hr IV 1600 [facility] Acetaminophen (Acetaminophen 1000 Mg/100 Ml) 750 mg in 75 mls @ 300 mls/hr IV Q6H PRN PRN Reason: Fever OF 100.5 OR GREATER Insulin Human Regular (Insulin Regular, Human 100 Unit/Ml) 0 unit SUBQ ACHS PRN; Protocol PRN Reason: hyperglycemia Magnesium Hydroxide (Magnesium, Aluminum Hydroxide 30 Ml Oral.Susp) 30 ml PO DAILY PRN PRN Reason: Constipation Nystatin/Triamcinolone Acetonide (Nystatin/Triamcinolone Acet 15 Gm Cream..G.) 1 gm TOPICAL Q8H [facility] Last Admin: 11/06/24 15:06 Dose: 1 gm Ondansetron HCl (Ondansetron Hcl/Pf 4 Mg/2 Ml Vial) 4 mg INJ Q6H PRN PRN Reason: Nausea And Vomiting Pantoprazole Sodium (Pantoprazole Sodium 40 Mg Tablet.Dr) 40 mg PO DAILY [facility] Last Admin: 11/06/24 09:35 Dose: 40 mg Pregabalin (Pregabalin 100 Mg Capsule) 100 mg PO BID [facility] Last Admin: 11/06/24 09:37 Dose: 100 mg Sodium Polystyrene Sulfonate (Sodium Polystyrene Sulfonate 15 Gm/60 Ml Oral.Susp) 30 gm PO Q6H [facility] Stop: 11/08/24 09:00 Last Admin: 11/06/24 15:07 Dose: 30 gm Time Spent With Patient Time: Total time spent is greater than 50% in coordination of care (as documented) at patient's floor/unit and/or counseling patient: Time with patient: greater than 35 minutes
[2024-11-06 16:23] LABS: Basophils%(Percent) Auto 0.2 (0.0-1.3); Eosinophils%(Percent) Auto 0.2 % (0.0-4.0); Granulocytes % - Auto 90.1 % (49.1-73.1); Granulocytes#(Absolute)- Auto 12.5 (2.0-6.2); Hematocrit 44.1 % (41.3-50.1); Mean Corpuscular Volume 91.8 fl (81.9-96.5); Monocytes #(Absolute)- Auto 0.6 (0.2-0.8); Monocytes %(Percent)- Auto 4.4 % (4.5-10.7); Platelet Count 153 K/uL (142-355); White Blood Count 13.9 K/uL (3.7-9.6)
[2024-11-06 16:40] LABS: Potassium 5.2 mmol/L (3.6-5.2)
[2024-11-06] MEDS: ACETAMINOPHEN 1000 MG/100 ML 1,000 MG/100 ML IV.SOLN IV ONE (16:43)
[2024-11-06] MEDS: 0.9 % SODIUM CHLORIDE 500 ML IV ONE (16:44)
[2024-11-06] MEDS: VANCOMYCIN HCL 1,000 MG in 0.9 % SODIUM CHLORIDE 250 ML IV SCH (16:58)
[2024-11-06 17:00] LABS: Base Excess ABG 1.8 mmo1/L (-2-2); Oxygen Saturation ABG 97 % (92-100); PCO2 ABG 37 mmHg (35-45); PO2 ABG 92 mmHg (60-100); pH ABG 7.45 (7.35-7.45)
[2024-11-06 17:33] VITALS: TEMP 97.8
--- NOTE | 2024-11-06 17:48 | Emergency Department Note ---
HPI - SOB/Dyspnea General Chief Complaint: SOB -Shortness of Breath Stated Complaint: LOW STATS/LOW OXYGEN STAT LEVELS Source: patient, EMR, EMS and other Source comment: [facility] staff c [facility] Mode of arrival: ambulance Limitations: altered mental status and physical limitation History of Present Illness HPI Narrative: This is a 64-year-old white male who was admitted to our hospital here at [facility], who has clinically worsened today. Patient was admitted for shortness of breath, as well as suspected UTI, with some delirium. He was treated with antibiotics, diuresis. He is acutely worsened today. His white blood cell count increased from 12-15.7. His BUN increased to 87, and his troponin, initially negative on admission, increased to 119 today. Patient was noted to be hypoxic in the afternoon, and had to be placed on high flow for ventilatory support. He improved dramatically, and was given an IV fluid bolus as well. Vancomycin was ordered, and given. However, the hospitalist, Dr. Samuels, believes that he may now exceed our ability to care for him here, depending on patient and family preference. Family is requesting that we continue to do everything that we can for him, though he is a DNR/DNI. At this juncture, I do believe the transferring him for critical care at a larger facility would be the most prudent hospice care is not preferred by family. MD elicited complaint: Reports shortness of breath and cough Pertinent past history: Reports congestive heart failure; Denies pneumonia Onset (ago): day(s) (1) Context: Reports recent illness; Denies recent travel or smoke/fume exposure Timing: Reports progressively worsening Severity: moderate-severe Exacerbating factors: Reports lying flat and deep breaths Relieving factors: Reports oxygen Known history of: Reports congestive heart failure Associated symptoms: Reports cough; Denies chest pain or fever Treatment prior to arrival: Reports none Related Data Home oxygen amount: other (See prior records) Home Medications Medication Instructions Recorded Confirmed acetaminophen 325 mg tablet 650 mg PO Q6H PRN fever or pain 01/30/24 11/05/24 buspirone 10 mg tablet 10 mg PO DAILY 01/30/2410/18 0/25 calcium 600 mg (as 1 tab PO BID 01/30/24 carbonate)-vitamin D3 10 mcg (400 unit) tablet (Calcium with Vitamin D) camphor-menthol 0.2 %-3.5 % 1 applic topical BID PRN m uscle 01/30/24 11/05/24 topical gel pain digoxin 250 mcg (0.25 mg) tablet 0.25 mg PO DAILY 01/1711/05/24 duloxetine 60 mg capsule,delayed 60 mg PO DAILY 11/05/24 release finasteride 5 mg tablet 5 mg PO DAILY 01/30/2411/05 furosemide 20 mg tablet 20 mg PO DAILY PRN SWELLING 01/30/24 11/05/24 hydrocodone 10 mg-acetaminophen 1 tab PO Q6H PRN pain 01/30/24 11/05/24 325 mg tablet insulin aspart U-100 100 unit/mL 1 sliding scale dose subcut ACHS 01/30/24 11/05/24 subcutaneous solution (Novolog PRN hyperglycemia U-100 Insulin aspart) pantoprazole 40 mg tablet,delayed 40 mg PO BID 4 11/05/24 release potassium chloride 20 mEq 20 meq PO BID 01/30/2411/05 tablet,extended release(part/cryst) pregabalin 100 mg capsule 100 mg PO BID 01/30/2411/05 ropinirole 4 mg tablet 4 mg PO BEDTIME 01/30/24 spironolactone 25 mg tablet 25 mg PO BID 01/30/2410/18 calcium carbonate (Tums) 200 mg PO TID PRN dyspepsia 11/05/24 11/05/24 cetirizine 10 mg tablet 10 mg PO DAILY 11/05/2410/18 ferrous sulfate 325 mg (65 mg 325 mg PO BID 11/05/24 0 11/05/24 iron) tablet ipratropium 0.5 mg-albuterol 3 mg 3 ml inhalation Q8H PRN shortness 11/05/24 11/05/24 (2.5 mg base)/3 mL nebulization of breath or wheezing soln sodium chloride 0.65 % nasal spray 1 spray intranasal Q1H PRN dry 11/05/24 11/05/24 aerosol (Mckenzie Saline) nasal passages Previous Rx's Medication Instructions Recorded bumetanide 0.5 mg tablet 0.5 mg PO BID fluid overload and 01/30/24 scrotal swelling #60 tabs Allergies Allergy/AdvReac Type Severity Reaction Status Date / Time codeine Allergy Verified 11/04/24 22:32 Review of Systems Status of ROS 10 or more systems reviewed and unremark able except as noted in history and below Constitutional Reports: fatigue and malaise; Denies: fever, chills, change in weight, night sweats or change in sleep pattern Eyes Denies: change in vision, blurry vision, blind spots, light sensitivity, eye discomfort, eye discharge or dry eyes Ears, nose, mouth, and throat Denies: throat pain, neck pain, throat swelling, difficulty swallowing, hoarseness, mouth pain, swelling of lips/tongue, ear pain or ear discharge Cardiovascular Reports: edema (BLE), swelling of feet/ankles (BLE), shortness of breath with exertion and shortness of breath when lying down; Denies: chest pain, palpitations, lightheadedness or leg pain with exertion Respiratory Reports: shortness of breath; Denies: cough, wheezing, stridor, pain on inspiration or change in phlegm color Gastrointestinal Reports: constipation; Denies: abdominal pain, nausea, vomiting, coffee grounds in vomit, heartburn, diarrhea, bloating, belching or difficulty swallowing Genitourinary Denies: painful urination, urinary frequency, urinary urgency, blood in urine or genital pain Musculoskeletal Reports: back pain, extremity swelling (BLE), joint pain, limited range of motion and muscle weakness; Denies: neck pain or extremity pain Integumentary/Breast Reports: rash (axilla and groin folds), stretch knott and nail changes; Denies: itching, redness, skin pain or skin tenderness Neurological Reports: headache and weakness in extremities; Denies: numbness in extremities, lack of coordination or dizziness Psychiatric Reports: anxiety and irritability; Denies: mood swings, panic attacks, change in sleep pattern, hopelessness, visual hallucinations, auditory hallucinations, tactile hallucinations, suicidal ideation or homicidal ideation Endocrine Reports: fatigue; Denies: excessive urination, excessive thirst, cold intolerance or excessive sweating Hematologic/Lymphatic Denies: easy bruising, easy bleeding or enlarged lymph nodes Allergic/Immunologic Denies: hives, throat swelling, tongue swelling, facial swelling, wheezing or itchy eyes PFSH [facility] Medical History Hypoxia Urethral meatal stenosis Anxiety disorder, unspecified Arthropathy, unspecified Heart failure, unspecified Old myocardial infarction Chronic pain syndrome Insomnia, unspecified Generalized anxiety disorder Hyperlipidemia, unspecified Morbid (severe) obesity due to excess calories Chronic or unspecified gastric ulcer with hemorrhage Iron deficiency anemia secondary to blood loss (chronic) Type 2 diabetes mellitus without complications Chronic ischemic heart disease, unspecified BPH (benign prostatic hyperplasia) Depression Polyneuropathy Atrial fibrillation Hypertension after donor nephrectomy requiring medication Anxiety Hypoalbuminemia Anemia GERD (gastroesophageal reflux disease) Chronic respiratory failure due to obstructive sleep apnea Chronic venous insufficiency of lower extremity Scrotal swelling Metabolic disorder Acute exacerbation of CHF (congestive heart failure) Debility Fluid overload Social History Smoking status: unknown if ever smoked What is your current living situation: I presently have a place to live Problems where you live: no known problems Highest level of school completed/degree received: decline to answer Feel stressed/tense/nervous/anxious/difficulty sleeping: very much Life stressor details: hospice Exam Constitutional: abnormal general appearance (chronically ill), distress noted (moderate) and (respiratory), abnormal body habitus (obese) and limitations noted (altered mental status) HENMT: normocephalic, head/scalp atraumatic, hearing grossly normal bilaterally, external ears normal and external nose normal Eyes: PERRL, EOMs intact bilaterally and conjunctivae normal Neck/C-Spine: visual inspection normal and trachea midline Lymph: no lymphadenopathy noted and no lymphedema noted Chest: inspection of chest normal and palpation of chest normal Respiratory: breath sounds equal bilaterally, normal respiratory effort, clear to auscultation bilaterally, no wheezes and no rales Cardiovascular: normal heart rate noted, regular rhythm noted, no gallop, no rub and no murmur Gastrointestinal: abdomen normal to inspection, abdomen soft to palpation and nontender to palpation Genitourinary: no CVA tenderness and bladder normal to palpation Back/Pelvis: spine normal to inspection, no thoracic spine tenderness and no lumbar spine tenderness Extremities: normal to inspection, normal to palpation and no tenderness Neurology: no movement abnormality noted, no focal motor deficit noted and no sensory deficits noted Psychiatry: mental status abnormal and orientation abnormal (disoriented to person), (disoriented to place) and (disoriented to time) Skin: skin color normal, no rash, no lesions and no ecchymosis noted Course Reevaluation(s) Reevaluation #1: I evaluated the patient at 4:30 PM, with Dr. Darcy Samuels at the bedside, until the patient's family that we will monitor his labs that have been rechecked, and make you to determine nation for admission versus transfer at that time. Time: 16:30 Reevaluation #2: Patient's labs have acutely worsened, including BUN that is specked 87, and a troponin that is now nearly twice the upper limit of normal, Wynder was negative on admission. Patient seems to be clinically worsening, and sepsis is likely. I discussed the patient with Dr. Jorge Hargrove at [facility] in [place], and he states that he believes the patient may exceed their capabilities for care given that he has complicated ureteral anatomy and may need a urologist and comprehensive advisor consult and then contact [facility], and speak to Dr. Robin Cary, the instrument engineer, who believes that the patient is appropriate for stepdown. I did speak to Dr. Fernie Cary, who believes the patient is appropriate for his unit is stepdown, and suggest that he had Zosyn. He accepts the patient for their care, and we are waiting for a bed for placement at 1743. Time: 17:30 Consultations Consultation #1: Drs. Hargrove, Robin Cary, Fernie Cary, see above. Time: 17:30 Consultation #2: [facility] notifies me of 1850 that [facility] community administrator on-call declined to the patient, they will the patient was accepted by Dr. Mcmahan, and capacity was confirmed. The reason for declination given to my nurse was that the patient did not have any insurance. This is not only factually incorrect, but unethical. [facility] does attempt to negotiated transfer to [facility], but after multiple attempts faxing a facesheet with confirmation on our end that it has been successful, community administrator at [facility] states that they have not received it. I then reach out to [facility] in [place], speak to Dr. John Valdez, who agrees with patient transfer and accepts patient for transfer. This is at 2215. Time: 22:15 Vital Signs Vital signs: Vital Signs Temperature 97.8 F 11/04/24 22:25 Pulse Rate 80 11/04/24 22:25 Respiratory Rate 17 11/04/24 22:25 Blood Pressure 90/53 11/04/24 22:25 Pulse Oximetry 93 L 11/04/24 22:25 Oxygen Delivery Method Nasal Cannula 11/04/24 22:25 Oxygen Flow Rate 4 11/04/24 22:25 Temperature 97.8 F 11/06/24 17:31 Pulse Rate 111 H 11/06/24 20:04 Respiratory Rate 26 H 11/06/24 20:04 Blood Pressure 96/51 11/06/24 20:04 Pulse Oximetry 98 11/06/24 20:04 Oxygen Delivery Method High Flow Nasal Cannula 11/06/24 16:00 Oxygen Flow Rate 2 11/06/24 12:00 Fraction of Inspired Oxygen 28 11/06/24 03:55 MDM - SOB/Dyspnea MDM Narrative Medical decision making narrative: Patient clinically worsening in our facility, now exceeds our capabilities of care, given sepsis, and need for critical care consult, possibly nephrology and urology consult as well. Patient graciously accepted by Dr. Collado into the PCU At [facility] at 1743 pending bed placement. See above. Patient accepted to [facility], then declined by community administrator on-call, for reasons unbeknownst to us. Reason given at the time the call was received by nursing staff was that the patient did not have insurance. However, as the patient constitutes an emergency medical condition at this time that has not been stabilized, and has worsened from his inpatient admission 2 days ago, it is appropriate to transfer him, and EMTALA applies. Attempt to transfer the patient to [facility] also unsuccessful after 2 to 3 hours of [id number] waiting on their administration received facesheet that we have faxed successfully multiple times. I then attempted to reach out to [facility] in [place] for patient transfer, and have a much smoother experience. I conference with Dr. Valdez, instrument engineer, who agrees that the patient needs ICU admission criteria, and needs a higher le kika of care. He accepts the patient to his care, and production control coordinator Chen is working on helping us arrange the finality of the transfer. Differential Diagnosis Differential diagnosis: Likely acute exacerbation of chronic obstructive airways disease, congestive heart failure, community acquired pneumonia, asthma with exacerbation, pulmonary embolism and other Medical Records Attestation: I reviewed the patient's medical records. Lab Data Attestation: I reviewed the patient's lab results. Labs: Lab Results 11/04/24 11/04/24 11/04/24 Range/Units 00:00 22:20 22:52 WBC 13.3 H (3.7-9.6) K/uL RBC 5.0 (4.40-5.80) M/uL Hgb 15.8 (14.0-17.4) gm/dL Hct 46.8 (41.3-50.1) % MCV 93.1 (81.9-96.5) fl MCH 31.4 (27.6-33.7) pg MCHC 33.7 (33.0-35.7) g/dl RDW 17.9 H (11.0-14.8) % Plt Count 182 (142-355) K/uL MPV 10.2 (6.0-10.4) fl Gran % 94.3 H (49.1-73.1) % Lymph % (Auto) 4.1 L (17.6-39.05) % [place] % (Auto) 1.2 L (4.5-10.7) % Eos % (Auto) 0.4 (0.0-4.0) % Baso % (Auto) 0.0 (0.0-1.3) Lymph # (Auto) 0.5 L (0.8-2.9) [place] # (Auto) 0.2 (0.2-0.8) Eos # (Auto) 0.0 (0.0-0.3) Baso # (Auto) 0.0 (0.0-0.1) Absolute Gran (auto) 12.6 H (2.0-6.2) ABG pH 7.47 H (7.35-7.45) ABG pCO2 35 (35-45) mmHg ABG pO2 75 (60-100) mmHg ABG PO2/FiO2 Ratio ABG HCO3 (22-26) mmo1/L ABG Total CO2 mmo1/L ABG O2 Saturation (92-100) % ABG Base Excess (-2-2) mmo1/L A-a O2 Gradient mmHg Respiratory Index (0-1) FiO2 % Sodium 136 (136-145) mmol/L Potassium 5.1 5.7 H (3.6-5.2) mmol/L Chloride 100.0 (98-107) mmol/L Carbon Dioxide 23 (21-32) mmol/L Anion Gap 13.0 (4-14) mEq/L BUN 54 H (7-18) mg/dL Creatinine 1.2 (0.6-1.3) mg/dL Estimated GFR 68.4 (>59.9) Glucose 64 L (70-110) mg/dL Lactic Acid 3.2 H (0.27-1.43) mmol/L Calcium 8.1 L (8.5-10.1) mg/dL Total Bilirubin 3.40 H (0.0-1.0) mg/dL AST 46 H (15-37) U/L ALT 24 L (30-65) U/L Alkaline Phosphatase 111 (50-136) U/L Troponin I High Sens (4.0-60.4) ng/L B-Natriuretic Peptide 1240.0 H (0-100) pg/mL Total Protein 5.9 L (6.4-8.2) g/dL Albumin 1.9 L (3.4-5.0) g/dL Lipase (16.0-77.0) U/L 11/04/24 11/05/24 Range/Units 22:52 00:00 WBC (3.7-9.6) K/uL RBC (4.40-5.80) M/uL Hgb (14.0-17.4) gm/dL Hct (41.3-50.1) % MCV (81.9-96.5) fl MCH (27.6-33.7) pg MCHC (33.0-35.7) g/dl RDW (11.0-14.8) % Plt Count (142-355) K/uL MPV (6.0-10.4) fl Gran % (49.1-73.1) % Lymph % (Auto) (17.6-39.05) % [place] % (Auto) (4.5-10.7) % Eos % (Auto) (0.0-4.0) % Baso % (Auto) (0.0-1.3) Lymph # (Auto) (0.8-2.9) [place] # (Auto) (0.2-0.8) Eos # (Auto) (0.0-0.3) Baso # (Auto) (0.0-0.1) Absolute Gran (auto) (2.0-6.2) ABG pH (7.35-7.45) ABG pCO2 (35-45) mmHg ABG pO2 241 (60-100) mmHg ABG PO2/FiO2 Ratio 0.31 ABG HCO3 25.5 (22-26) mmo1/L ABG Total CO2 26.6 mmo1/L ABG O2 Saturation 96 (92-100) % ABG Base Excess 2.0 (-2-2) mmo1/L A-a O2 Gradient 166 mmHg Respiratory Index 2.2 H (0-1) FiO2 40 % Sodium (136-145) mmol/L Potassium (3.6-5.2) mmol/L Chloride (98-107) mmol/L Carbon Dioxide (21-32) mmol/L Anion Gap (4-14) mEq/L BUN (7-18) mg/dL Creatinine (0.6-1.3) mg/dL Estimated GFR (>59.9) Glucose (70-110) mg/dL Lactic Acid (0.27-1.43) mmol/L Calcium (8.5-10.1) mg/dL Total Bilirubin (0.0-1.0) mg/dL AST (15-37) U/L ALT (30-65) U/L Alkaline Phosphatase (50-136) U/L Troponin I High Sens 52.30 (4.0-60.4) ng/L B-Natriuretic Peptide (0-100) pg/mL Total Protein (6.4-8.2) g/dL Albumin (3.4-5.0) g/dL Lipase 6.0 L (16.0-77.0) U/L ABG Data ABG results: Respiratory alkalosis, improving on high flow. Attestation: I personally reviewed and interpreted this ABG as follows: Imaging Data Imaging ordered: Chest x-ray Attestation: I personally reviewed and interpreted this imaging study as follows: My impression: Chest x-ray from admission reviewed, and deemed to be chronic from CHF, with no acute infiltrates. ECG Data Attestation: I personally reviewed and interpreted this ECG as follows: ECG interpretation date: 11/06/24 ECG interpretation time: 16:30 Prior ECG tracings: available for review Interpretation: Normal axis, atrial fibrillation, with a slightly elevated rate of 107. Normal intervals no pathologic ST or T wave elevation, depression, or inversion. No evidence of dig toxicity. Critical Care Time Critical Care Time Critical Care Time: Yes Total Critical Care Time: 450 Attestation: I spent 450 minutes of critical care time with this patient, exclusive of any procedures. Discharge Plan Discharge Patient Disposition: Xfer Short-Term Hosp Condition: Other Chief Complaint: SOB -Shortness of Breath Clinical Impression: Acute exacerbation of CHF (congestive heart failure), Debility, Hypertension, Chronic venous insufficiency of lower extremity, Acute hyperkalemia, Acute hypotension, Hypoalbuminemia Interventions: ED Discharge Assessment Last Done: 11/05/24 03:39 ED Discharge Vital Sign Last Done: 11/05/24 03:39 Emergency Department Charge Sheet Last Done: 11/05/24 03:40 Time of Disposition: 00:20 Discharge Date/Time: 11/05/24 03:30 Procedures ED Procedure Instructions IV meds x1 Continued resp support, Hi Flow Oxygen
[2024-11-06] MEDS ORDERED: PIPERACILLIN/TAZOBACTAM 3.375 3.375 GM in 0.9 % SODIUM CHLORIDE MB+ 100 ML IV ONE (19:00)
[2024-11-06] MEDS ORDERED: IPRATROPIUM/ALBUTEROL SULFATE 3 ML AMPUL.NEB INH ONE (19:15)
[2024-11-06] MEDS ORDERED: FLUCONAZOLE-NACL 200 MG/100 ML 200 MG/100 ML PIGGYBACK IV SCH (20:00)
[2024-11-06] MEDS ORDERED: FLUCONAZOLE-NACL 200 MG/100 ML 200 MG/100 ML PIGGYBACK IV ONE (21:34)
[2024-11-06] MEDS ORDERED: PIPERACILLIN SODIUM/TAZOBACTAM 3.375 GM VIAL IV ONE (21:34)
[2024-11-06] MEDS ORDERED: 0.9 % SODIUM CHLORIDE 100ML 100 ML IV ONE (21:34)
[2024-11-07 04:38] VITALS: BP 98/70; PULSE 95; RESP 25
--- NOTE | 2024-11-07 13:21 | Discharge Summary ---
DS: Providers Provider Date of admission: 11/05/24 02:54 Primary care physician: Ish Stewart MD Admitting clinician: Darcy Samuels Attending physician on admission: Darcy Samuels Attending physician on discharge: Darcy Samuels Discharging clinician: Darcy Samuels Anticipated date of discharge: 11/07/24 DS: Diagnosis Discharge Diagnosis (1) Septic shock: (2) Pneumonia: Qualifiers: Pneumonia type: due to unspecified organism Laterality: bilateral Lung location: unspecified part of lung Qualified Code(s): J18.9 - Pneumonia, unspecified organism (3) Hyperkalemia: (4) Tinea corporis: (5) Hypoalbuminemia: (6) UTI (urinary tract infection): Qualifiers: Urinary tract infection type: site unspecified Hematuria presence: without hematuria Qualified Code(s): N39.0 - Urinary tract infection, site not specified (7) End of life care: (8) Fluid overload: Qualifiers: Hypervolemia type: other Qualified Code(s): E87.79 - Other fluid overload (9) Acute exacerbation of CHF (congestive heart failure): Qualifiers: Heart failure type: combined systolic and diastolic Qualified Code(s): I50.43 - Acute on chronic combined systolic (congestive) and diastolic (congestive) heart failure (10) Hypertension: Qualifiers: Hypertension type: primary hypertension Qualified Code(s): I10 - Essential (primary) hypertension (11) Debility: (12) Urethral meatal stenosis: Qualifiers: Urethral stricture type: post-traumatic, male Urethral stricture sex- location: male urethra-meatus Qualified Code(s): 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, male, meatal (13) GERD (gastroesophageal reflux disease): Qualifiers: Esophagitis presence: without esophagitis Qualified Code(s): K21.9 - Gastro-esophageal reflux disease without esophagitis (14) Type 2 diabetes mellitus without complications: Qualifiers: 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 Patient mated to the floor felt better after IV antibiotics and diuretics with insisting to go back to the [facility] and he understood that this could mean his continued worsening in . Upon arrival back to the shelter sister got involved a lot of patient brought back to the hospital states brought back over by his bed to the floor where he had awareness understood the risk and benefits and after discussing with his sister he declined hospice and states he wanted to stay here and refused to be transferred to another facility at that time stating that he thinks he can get better here does not want to make it harder on the family if he goes somewhere else. At times they do not want to be intubated he did not want to have chest compressions as witnessed by myself and his sister and medicines hours. Patient resumed his cardiac monitoring as well as his IV antibiotics Rocephin and Zithromax and the next day vancomycin was added secondary to continued decline in his blood pressure and his mentation state and circulation. Around 5:00 in the evening on 11/06/24 patient was moved to the ER so that ER physician could watch him and treat more rapidly than if he remained on the floor and arrange transport to another facility with an ICU since we do not have one at this time. Patient continued to have decline in his renal function was at 87 BUN and 2.3 creatinine at time of discharge although have been normal on admission at 22 mildly elevated) creatinine 0.8 albumin remained low throughout stay was 1.8 at the time of transfer although he was transfused 2 units after that. Patient's WBCs improved down to 13 from 15 in the morning with 1 dose of vancomycin and continued Rocephin and Zithromax Patient's blood pressure was low on admission improved and on 11/06/24 started declining again patient become more obtunded difficulty carrying on conversation because he could not stay awake although on 620 he was awake all night and all day on 11/05/2020 and all that day finally rested tat night and then his mentation is changing at shift change on 11/06/2024. Had to go through 4 different helicopters to find one that the patient completed and secondary to his body habitus and could not fit on the EMS stretcher for the 2-hour drive to [place] where he had a bed in the hospital ICU. Sister revoked the postop patient signed on 11/05/2024 and wanted him to transfer and even to be intubated if needed in making a full code rather than a DNR. Despite ultrasound and the smallest urinary catheter we have here was unable to obtain a urine on the patient during his 3-day hospital stay although I suspect that still the source of his infection along with a pneumonia and the worsening sepsis for the patient had. Patient also had liver insult secondary [place] to blood pressure and sepsis bili went up to 3.7 from 0.8 as well as AST increasing as well troponin at time of being transferred was 117.7 Status at Discharge Functional status at discharge: bed bound Overall status at discharge: patient is not back to baseline Time Spent with Patient Time attestation: Total time spent providing and/or coordinating discharge services:120 Time spent: greater than 30 minutes Specific discharge activities: Arrange an ICU bed and facility had coverage and beds. Try to arrange transport for the man's body habitus was difficult and had to go through several different helicopters to get 1 that could support him and EMS states there stretchers could not carry his load Exam Constitutional: abnormal general appearance (chronically ill), distress noted (moderate) and (respiratory), abnormal body habitus (obese), limitations noted (altered mental status) and level of alertness abnormal (obtunded) Vital Signs - 24 hr 11/06/24 15:10 11/06/24 16:00 11/06/24 17:31 Temperature 98.2 F 97.8 F Pulse Rate 88 Pulse Rate [Left] 78 Respiratory Rate 25 H 40 H Blood Pressure 98/50 Blood Pressure [Le ft Arm] 91/53 Pulse Oximetry 94 L 95 98 Oxygen Delivery Me thod High Flow Nasal Ca nnula Oxygen Flow Rate Fraction of Inspir ed Oxygen 11/06/24 17:57 11/06/24 19:22 11/06/24 20:04 Temperature Pulse Rate 85 111 H Pulse Rate [Left] Respiratory Rate 30 H 26 H Blood Pressure 98/50 96/51 Blood Pressure [Le ft Arm] Pulse Oximetry 97 99 98 Oxygen Delivery Me thod Oxygen Flow Rate Fraction of Inspir ed Oxygen 11/06/24 20:30 11/06/24 21:00 11/06/24 22:00 Temperature Pulse Rate 94 H 103 H 99 H Pulse Rate [Left] Respiratory Rate 22 24 22 Blood Pressure 112/52 106/55 106/58 Blood Pressure [Le ft Arm] Pulse Oximetry 97 98 98 Oxygen Delivery Me thod High Flow Nasal Ca nnula High Flow Nasal Ca nnula High Flow Nasal Ca nnula Oxygen Flow Rate 30 Fraction of Inspir ed Oxygen 60 11/06/24 23:00 11/06/24 23:30 11/07/24 00:14 Temperature Pulse Rate 98 H 95 H Pulse Rate [Left] Respiratory Rate 26 H 22 Blood Pressure 111/52 91/65 Blood Pressure [Le ft Arm] Pulse Oximetry 98 100 100 Oxygen Delivery Me thod High Flow Nasal Ca nnula Non Rebreather Non Rebreather Oxygen Flow Rate 15 Fraction of Inspir ed Oxygen 100 11/07/24 00:30 11/07/24 01:30 Temperature Pulse Rate 108 H 95 H Pulse Rate [Left] Respiratory Rate 24 25 H Blood Pressure 131/55 98/70 Blood Pressure [Le ft Arm] Pulse Oximetry 100 100 Oxygen Delivery Me thod Non Rebreather Non Rebreather Oxygen Flow Rate Fraction of Inspir ed Oxygen HENMT: normocephalic, head/scalp atraumatic, hearing grossly normal bilaterally, external ears normal and external nose normal Eyes: PERRL, EOMs intact bilaterally and conjunctivae normal Neck/C-Spine: visual inspection normal and trachea midline Lymph: no lymphadenopathy noted and no lymphedema noted Chest: inspection of chest normal and palpation of chest normal Respiratory: breath sounds equal bilaterally, normal respiratory effort, clear to auscultation bilaterally, no wheezes and no rales Cardiovascular: normal heart rate noted, regular rhythm noted, no gallop, no rub and no murmur Gastrointestinal: abdomen normal to inspection, abdomen soft to palpation and nontender to palpation Genitourinary: no CVA tenderness and bladder normal to palpation Back/Pelvis: spine normal to inspection, no thoracic spine tenderness and no lumbar spine tenderness Extremities: normal to inspection, normal to palpation and no tenderness Neurology: stitcher tape controlled machine II-XII intact, movement abnormality noted, no focal motor deficit noted, sensory deficit noted, deep tendon reflexes as noted:, gait abnormality noted, speech abnormality noted and coordination abnormality noted Psychiatry: Mental Status Exam documented within this Exam's Psych section mental status abnormal, orientation abnormal (disoriented to person), (disoriented to place) and (disoriented to time), thought process abnormality noted, uncooperative, affect abnormality noted, psychomotor abnormality noted and memory normal Feel stressed/tense/nervous/anxious/difficulty sleeping: decline to answer Skin: skin color abnormal, no rash, no lesions, ecchymosis noted, no wounds, no lacerations, skin turgor abnormal, jaundice noted, no petechiae, mottling noted, nails abnormality noted and alopecia noted DS: Data Data Completed and Pending Labs on day of discharge: Labs from last 24 hours 11/06/24 11/06/24 11/06/24 16:10 16:08 16:08 WBC 13.9 H RBC 4.8 Hgb 14.7 Hct 44.1 MCV 91.8 MCH 30.6 MCHC 33.3 RDW 17.8 H Plt Count 153 MPV 9.6 Gran % 90.1 H Lymph % (Auto) 5.1 L Harlan % (Auto) 4.4 L Eos % (Auto) 0.2 Baso % (Auto) 0.2 Lymph # (Auto) 0.7 L [place] # (Auto) 0.6 Eos # (Auto) 0.0 Baso # (Auto) 0.0 Absolute Gran (auto) 12.5 H ABG pH 7.45 ABG pCO2 37 ABG pO2 382 92 ABG PO2/FiO2 Ratio 0.24 ABG HCO3 25.7 ABG Total CO2 26.8 ABG O2 Saturation 97 ABG Base Excess 1.8 A-a O2 Gradient 290 Respiratory Index 3.2 H FiO2 60 Sodium 135 L Potassium 5.2 Chloride 102.0 Carbon Dioxide 24 Anion Gap 9.0 BUN 87 H* Creatinine 2.3 H Estimated GFR 31.3 Glucose 96 Lactic Acid 2.2 H Calcium 8.4 L Total Creatine Kinase 101 Troponin I High Sens 117.70 H* 11/06/24 11/06/24 13:44 13:44 WBC RBC Hgb Hct MCV MCH MCHC RDW Plt Count MPV Gran % Lymph % (Auto) Harlan % (Auto) Eos % (Auto) Baso % (Auto) Lymph # (Auto) Harlan # (Auto) Eos # (Auto) Baso # (Auto) Absolute Gran (auto) ABG pH 7.47 H ABG pCO2 32 L ABG pO2 217 49 L* ABG PO2/FiO2 Ratio 0.23 ABG HCO3 23.3 ABG Total CO2 24.3 ABG O2 Saturation 87 L* ABG Base Excess 0.2 A-a O2 Gradient 168 Respiratory Index 3.4 H FiO2 36 Sodium Potassium Chloride Carbon Dioxide Anion Gap BUN Creatinine Estimated GFR Glucose Lactic Acid Calcium Total Creatine Kinase Troponin I High Sens Preliminary micro results at discharge 11/06/24 16:10 Blood Culture - Preliminary Blood - Venous Draw (Peripheral) Discharge Plan Discharge Disposition: Xfer [facility] Condition: Other Anticipated Discharge Date/Time: 11/05/24 13:41 Discharge Medications: Continued hydrocodone-acetaminophen 10-325 mg tablet 1 tab PO Q6H PRN (Reason: pain) ropinirole 4 mg tablet 4 mg PO BEDTIME spironolactone 25 mg tablet 25 mg PO BID Rx Instructions: HOLD IF SYSTOLIC BLOOD PRESSURE LESS THAN 110 buspirone 10 mg tablet 10 mg PO DAILY digoxin 250 mcg (0.25 mg) tablet 0.25 mg PO DAILY duloxetine 60 mg capsule,delayed release(DR/EC) 60 mg PO DAILY finasteride 5 mg tablet 5 mg PO DAILY furosemide 20 mg tablet 20 mg PO DAILY PRN (Reason: SWELLING) insulin aspart U-100 [Novolog U-100 Insulin aspart] 100 unit/mL solution 1 sliding scale dose subcut ACHS PRN (Reason: hyperglycemia) pantoprazole 40 mg tablet,delayed release (DR/EC) 40 mg PO BID potassium chloride 20 mEq tablet,ER particles/crystals 20 meq PO BID pregabalin 100 mg capsule 100 mg PO BID camphor-menthol 0.2-3.5 % gel 1 applic topical BID PRN (Reason: muscle pain) Rx Instructions: rub in gently and completely calcium carbonate-vitamin D3 [Calcium with Vitamin D] 600 mg-10 mcg (400 unit) tablet 1 tab PO BID acetaminophen 325 mg tablet 650 mg PO Q6H PRN (Reason: fever or pain) bumetanide 0.5 mg tablet 0.5 mg PO BID Qty: 60 0RF cetirizine 10 mg tablet 10 mg PO DAILY ferrous sulfate 325 mg (65 mg iron) tablet 325 mg PO BID ipratropium-albuterol 0.5 mg-3 mg(2.5 mg base)/3 mL solution for nebulization 3 ml INHALATION Q8H PRN (Reason: shortness of breath or wheezing) Patient Comments: INHALE ONE VIAL VIA NEBULIZER THREE TIMES DAILY NEEDED calcium carbonate [Tums] 200 mg calcium (500 mg) tablet,chewable 200 mg PO TID PRN (Reason: dyspepsia) [place] Saline 0.65 % aerosol,spray 1 spray intranasal Q1H PRN (Reason: dry nasal passages) Activity: as per physical therapy and increase activity as tolerated Diet: advance to your usual diet Hospital Course: Patient was admitted to the hospital on thank you 11/05/2024 for pneumonia CHF exacerbation and possible UTI difficulty getting urine. Patient mated to the floor felt better after IV antibiotics and diuretics with insisting to go back to the shelter on [facility] and he understood that this could mean his continued worsening in . Upon arrival back to the shelter sister got involved a lot of patient brought back to the hospital states brought back over by his bed to the floor where he had awareness understood the risk and benefits and after discussing with his sister he declined hospice and states he wanted to stay here and refused to be transferred to another facility at that time stating that he thinks he can get better here does not want to make it harder on the family if he goes somewhere else. At times they do not want to be intubated he did not want to have chest compressions as witnessed by myself and his sister and medicines hours. Patient resumed his cardiac monitoring as well as his IV antibiotics Rocephin and Zithromax and the next day vancomycin was added secondary to continued decline in his blood pressure and his mentation state and circulation. Around 5:00 in the evening on 11/06/24 patient was moved to the ER so that ER physician could watch him and treat more rapidly than if he remained on the floor and arrange transport to another facility with an ICU since we do not have one at this time. Patient continued to have decline in his renal function was at 87 BUN and 2.3 creatinine at time of discharge although have been normal on admission at 22 mildly elevated) creatinine 0.8 albumin remained low throughout stay was 1.8 at the time of transfer although he was transfused 2 units after that. Patient's WBCs improved down to 13 from 15 in the morning with 1 dose of vancomycin and continued Rocephin and Zithromax Patient's blood pressure was low on admission improved and on 11/06/24 started declining again patient become more obtunded difficulty carrying on conversation because he could not stay awake although on 620 he was awake all night and all day on 11/05/2020 and all that day finally rested tat night and then his mentation is changing at shift change on 11/06/2024. Had to go through 4 different helicopters to find one that the patient completed and secondary to his body habitus and could not fit on the EMS stretcher for the 2-hour drive to [place] where he had a bed in the hospital ICU. Sister revoked the postop patient signed on 11/05/2024 and wanted him to transfer and even to be intubated if needed in making a full code rather than a DNR. Despite ultrasound and the smallest urinary catheter we have here was unable to obtain a urine on the patient during his 3-day hospital stay although I suspect that still the source of his infection along with a pneumonia and the worsening sepsis for the patient had. Patient also had liver insult secondary [place] to blood pressure and sepsis bili went up to 3.7 from 0.8 as well as AST increasing as well troponin at time of being transferred was 117.7 Interventions: Discharge Assessment Last Done: 11/05/24 14:01 MED/SURG & ICU Observation Charge Sheet Last Done: 11/05/24 14:01 Plan of Treatment: Patient was admitted to the hospital for the altered mental status and pneumonia and acute aspiration CHF. Upon discussion with the patient finds able to go back to the shelter today with return to [facility] hosp[facility] declines further treatment of his pneumonia inside the hospital at this time. Patient to be discussed with Ish to see if he wants antibiotics and further aerosolized treatments as well as continuing any diuretics or diuretic changes. Print Language: Polish Activity Restrictions/Additional Instructions: Patient accepted to [facility]. Dr. John Pack accepting physician. Forms: Portal/Health Info Access Inst Follow-Ups: Ish Stewart MD [Primary Care Provider, Medical] Discharge Date/Time: 11/07/24 01:40 Discharge Comment: Patient transferred to higher level of care.
== END 2024-11-07 01:40 ==
LOC: MS 22:01 → ED 22:01 → MS 11-05 03:30 → UNDODISOB 11-05 14:42
PROVIDERS: ADMIT Family Medicine; ATTEND Family Medicine